=== PATIENT | male | born 2000 | race Caucasian/White ===

== ENCOUNTER 2018-09-05 18:13 | Emergency (ER) | payer BC ==
[2018-09-05 18:25] VITALS: BP 134/85
--- NOTE | 2018-09-05 19:34 | UC ---
Neck Pain HPI - HPI Summary HPI Summary: 18 y/o male with no PMH, no medications presents today after turning neck to side to cough and having severe spasm of neck to now to turn neck in certain positions recreates pain. no fever, chills, no feeling ill, no prior neck pain or spinal problems. no difficulty swallowing, numbness/ tingling. - History of Current Complaint Chief Complaint: UCUpperExtremity Stated Complaint: NECK INJURY Hx Obtained From: Patient Onset/Duration Of Injury/Symptoms: Hours Mechanism Of Injury: No Known Trauma Timing: Constant Onset/Duration: Sudden Onset Severity: Moderate Pain Intensity: 8 Pain Scale Used: 0-10 Numeric - Allergies/Home Medications Allergies/Adverse Reactions: Allergies Allergy/AdvReac Type Severity Reaction Status Date / Time No Known Allergies Allergy Verified 09/05/18 18:24 Home Medications: Home Medications Ibuprofen 400 mg PO 09/05/18 [History] PMH/Surg Hx/FS Hx/Imm Hx Previously Healthy: Yes - Surgical History Surgical History: None - Social History Alcohol Use: Rare Substance Use Type: None Smoking Status (MU): Never Smoked Tobacco Review Of Systems Constitutional: Positive: Negative Musculoskeletal: Positive: Decreased ROM, Myalgia. Negative: Edema All Other Systems Reviewed And Are Negative: Yes Physical Exam Triage Information Reviewed: Yes Appearance: Well-Appearing, Well-Nourished, Pain Distress - minimal at rest, increased with flex/ extension of head with head tilted to 30 degrees. Vital Signs: Initial Vital Signs Temp 98.6 F 09/05/18 18:21 Pulse 67 09/05/18 18:21 Resp 18 09/05/18 18:21 BP 134/85 09/05/18 18:21 Pulse Ox 100 09/05/18 18:21 Eyes: Positive: Conjunctiva Clear Neck: Positive: Supple, Nontender, No Lymphadenopathy. Negative: Nuchal Rigidity Musculoskeletal: Positive: No Edema, Other: - TTP over L side deep paraspinal muscles, no TTP over midline cerival spine full ROM for lateral movement, flex/ extension movements. deep palpation causes pain over muscles. Psychological Exam: Normal Skin Exam: Normal Neck Pain Course/Dx - Course Course Of Treatment: torticollis, muscle relaxer, NSAIDs, heat - Differential Dx/Diagnosis Differential Dx/HQI/PQRI: Torticollis Provider Diagnoses: torticollis Discharge - Sign-Out/Discharge Documenting (check all that apply): Patient Departure All imaging exams completed and their final reports reviewed: No Studies - Discharge Plan Condition: Good Disposition: HOME Prescriptions: diazePAM [Valium] 5 mg PO BEDTIME PRN #3 tablet MDD 1 PRN Reason: muscle spasm Naproxen [Naproxen 250 mg tab] 250 mg PO BID #10 tablet Patient Education Materials: Spasmodic Torticollis (ED) Referrals: No Primary Care Phys,NOPCP [Primary Care Provider] - Additional Instructions: - muscle relaxant to help sleep - Motrin/ naproxen as directed to help with inflammation/ pain - Heat/ warm compresses - Stretching as tlerated - rest head as much as possible - Billing Disposition and Condition Condition: GOOD Disposition: Home
== END 2018-09-05 19:45 | disposition home or self-care (01) ==
LOC: UCEAST 18:13
DX: M43.6 Torticollis (principal)
CPT/HCPCS: 99202; G0463